=== PATIENT | male | born 1995 | race Hispanic/Latino ===

== ENCOUNTER 2017-06-23 04:29 | Emergency (ER) | payer SELFPAY ==
[2017-06-23] MEDS ORDERED: Cephalexin 250 MG CAP ONE (04:49)
[2017-06-23] MEDS ORDERED: Dexamethasone 4 mg/ml Vial ONE (04:49)
== END 2017-06-23 05:00 | disposition home or self-care (01) ==
LOC: BURERS 04:29
DX: J02.9 Acute pharyngitis, unspecified (principal); Z87.891 Personal history of nicotine dependence
CPT/HCPCS: 99282; J1100